=== PATIENT | female | born 1960 | race Caucasian/White ===

== ENCOUNTER 2022-05-23 04:18 | Day surgery (SDC) | payer OTHER ==
[2022-05-22 15:14] VITALS: BMI 28.7
[2022-05-23] MEDS ORDERED: LIDOCAINE HCL/PF 2% SDV 5ML VIAL ONE (08:54)
[2022-05-23] MEDS ORDERED: PROPOFOL 20 ML ONE (08:54)
[2022-05-23] MEDS ORDERED: MIDAZOLAM HCL 2 MG/2 ML SINGLE DOSE VIAL ONE (08:54)
[2022-05-23] MEDS ORDERED: FENTANYL CITRATE/PF 50 MCG/ML VIAL ONE ×2 (08:54→09:16)
[2022-05-23] MEDS ORDERED: ONDANSETRON 4 MG/2 ML VIAL IVPUSH PRN ×2 (08:59→09:59)
[2022-05-23] MEDS ORDERED: IBUPROFEN 800 MG/8 ML IJ IVPB PRN (08:59)
[2022-05-23] MEDS ORDERED: oxyCODONE HCL 5 MG TABLET PO PRN ×2 (08:59→09:59)
[2022-05-23] MEDS ORDERED: IBUPROFEN 600 MG TABLET (FP) PO PRN (08:59)
[2022-05-23] MEDS ORDERED: ELECTROLYTE-148 SOLN 1,000 ML IV SCH (09:00)
[2022-05-23] MEDS ORDERED: KETOROLAC TROMETHAMINE 30 MG/1 ML VIAL ONE (09:16)
[2022-05-23] MEDS ORDERED: DEXAMETHASONE SOD PHOSPHATE 4 MG/1 ML VIAL ONE (09:16)
[2022-05-23] MEDS ORDERED: FENTANYL CITRATE/PF 50 MCG/ML VIAL IVPUSH PRN (09:59)
[2022-05-23] MEDS ORDERED: ACETAMINOPHEN 1000 MG/100 ML BAG IVPB ONE (09:59)
[2022-05-23] MEDS ORDERED: LACTATED RINGERS SOLUTION 1,000 ML IV SCH (10:00)
[2022-05-23 11:02] VITALS: TEMP 98.8
[2022-05-23 12:32] VITALS: BP 130/74; PULSE 64; RESP 18
== END 2022-05-23 12:32 | disposition home or self-care (01) ==
LOC: JASU-SURG 04:18
PROVIDERS: ATTEND Obstetrics & Gynecology
PROC: 0UJD8ZZ Inspection of Uterus and Cervix, Via Natural or Artificial Opening Endoscopic (ICD-10-PCS; 2022-05-23)
PROC: 0UDB7ZX Extraction of Endometrium, Via Natural or Artificial Opening, Diagnostic (ICD-10-PCS; principal; 2022-05-23 08:30)
DX: N85.8 Other specified noninflammatory disorders of uterus (principal)
CPT/HCPCS: 87086; 88305-TC; 94760